=== PATIENT | male | born 1950 | race Caucasian/White ===

== ENCOUNTER 2019-06-26 08:57 | Inpatient (IN) | payer MEDICARE ==
[~2019-06-26] VITALS: Ht 172.7 cm; Wt 93.6 kg
[2019-06-26] MEDS ORDERED: ASPIRIN 81 MG TABLET CHEW PO ONE (09:30)
--- NOTE | 2019-06-26 09:36 | NUR ---
DIE BARBER: PT TO ROOM FROM LOBBY
[2019-06-26] MEDS ORDERED: ASPIRIN 81 MG TABLET CHEW ONE (10:04)
[2019-06-26 10:06] LABS: BASOPHILS # (AUTO) 0.04 x10^3/uL (0-0.1); BASOPHILS % (AUTO) 1 % (0-1); EOSINOPHILS # (AUTO) 0.08 x10^3/uL (0-0.4); EOSINOPHILS % (AUTO) 1 % (1-7); LYMPHOCYTES # (AUTO) 1.38 x10^3/uL (1-3.4); LYMPHOCYTES % (AUTO) 21 % (22-44); MD NO; MEAN CORPUSCULAR HEMOGLOBIN 31.1 pg (27.5-34.5); MEAN CORPUSCULAR HGB CONC 33.9 g/dL (33.2-36.2); MEAN CORPUSCULAR VOLUME 91.9 fL (81-97); MONOCYTES # (AUTO) 0.54 x10^3/uL (0.2-0.8); MONOCYTES % (AUTO) 8 % (2-9); NEUTROPHILS # (AUTO) 4.48 x10^3/uL (1.8-6.8); NEUTROPHILS % (AUTO) 69 % (42-75); PLATELET COUNT 233 x10^3/uL (130-400); RED BLOOD COUNT 5.16 x10^6/uL (4.38-5.82); RED CELL DISTRIBUTION WIDTH 13.4 % (9.4-14.8)
[2019-06-26 10:11] LABS: ALBUMIN 3.7 g/dL (3.4-5.0); ANION GAP 4 mmol/L (5-15); CALCIUM 9.1 mg/dL (8.5-10.1); CHLORIDE 106 mmol/L (98-107); CREATININE 1.07 mg/dL (0.7-1.3)
[2019-06-26 10:21] LABS: TROPONIN I 0.832 ng/mL (0.000-0.045)
[2019-06-26] MEDS ORDERED: NITROGLYCERIN OINT 2%, 1GM TP ONE ×2 (11:00→11:40)
[2019-06-26] MEDS ORDERED: HEPARIN 5,000 UNITS/ML, 1ML IV PRN (11:00)
[2019-06-26] MEDS ORDERED: HEPARIN 25,000 UNITS/250ML PMX 250 ML IV PRN (11:00)
[2019-06-26] MEDS ORDERED: HEPARIN 5,000 UNITS/ML, 1ML IV ONE (11:00)
[2019-06-26] MEDS ORDERED: AMLO5TAB4 PO (11:18)
[2019-06-26] MEDS ORDERED: ASPI-496 PO (11:18)
[2019-06-26] MEDS ORDERED: ONDANSETRON 2MG/ML, 2ML IVPush PRN (11:30)
[2019-06-26] MEDS ORDERED: morphine SULFATE 10 MG/ML, 1ML IVPush PRN (11:30)
[2019-06-26] MEDS ORDERED: HEPARIN 25,000 UNITS/250ML PMX 250 ML ONE (11:39)
[2019-06-26] MEDS ORDERED: HEPARIN 5,000 UNITS/ML, 1ML ONE (11:39)
[2019-06-26 12:23] VITALS: BP 174/97
[2019-06-26] MEDS ORDERED: TRAZ-175 PO (12:40)
[2019-06-26] MEDS ORDERED: VERAPAMIL 2.5 MG/ML, 2ML ONE (14:14)
[2019-06-26] MEDS ORDERED: MIDAZOLAM 1 MG/ML, 2ML ONE ×3 (14:14→15:09)
[2019-06-26] MEDS ORDERED: FENTANYL PF 100 MCG/2ML ONE ×2 (14:14→15:09)
[2019-06-26] MEDS ORDERED: LIDOCAINE-MPF 1%, 5ML ONE (14:14)
[2019-06-26] MEDS: SODIUM CHLORIDE 0.9% 1,000 ML IV SCH ×2 (15:00→21:37)
[2019-06-26] MEDS ORDERED: PRASUGREL 10 MG TABLET ONE (15:26)
[2019-06-26] MEDS ORDERED: BIVALIRUDIN 250 MG ONE (15:29)
[2019-06-26] MEDS ORDERED: BIVALIRUDIN 250 MG in SODIUM CHLORIDE 0.9% 50 ML IV SCH (15:37)
[2019-06-26] MEDS ORDERED: DIPHENHYDRAMINE 50 MG CAPSULE PO ONE (17:00)
[2019-06-26] MEDS: METOPROLOL TARTRATE 25 MG TAB PO SCH (17:29)
[2019-06-26 19:15] VITALS: BP 159/80
[2019-06-26] MEDS ORDERED: ATORVASTATIN 40 MG TABLET PO SCH (21:00)
[2019-06-26] MEDS ORDERED: TEMAZEPAM 15 MG CAPSULE PO PRN (23:00)
[2019-06-27 01:29] VITALS: BP_SYST 164; BP_SYST 169; BP_DIAS 100; BP_DIAS 99
[2019-06-27 04:33] LABS: BASOPHILS # (AUTO) 0.03 x10^3/uL (0-0.1); BASOPHILS % (AUTO) 0 % (0-1); EOSINOPHILS # (AUTO) 0.12 x10^3/uL (0-0.4); EOSINOPHILS % (AUTO) 1 % (1-7); LYMPHOCYTES # (AUTO) 1.09 x10^3/uL (1-3.4); LYMPHOCYTES % (AUTO) 13 % (22-44); MD NO; MEAN CORPUSCULAR HEMOGLOBIN 31.4 pg (27.5-34.5); MEAN CORPUSCULAR HGB CONC 34.1 g/dL (33.2-36.2); MEAN PLATELET VOLUME 8.4 fL (7.4-10.4); MONOCYTES # (AUTO) 0.66 x10^3/uL (0.2-0.8); MONOCYTES % (AUTO) 8 % (2-9); NEUTROPHILS # (AUTO) 6.83 x10^3/uL (1.8-6.8); NEUTROPHILS % (AUTO) 78 % (42-75); PLATELET COUNT 216 x10^3/uL (130-400); RED CELL DISTRIBUTION WIDTH 13.7 % (9.4-14.8)
[2019-06-27 04:45] LABS: ALBUMIN 3.2 g/dL (3.4-5.0); ANION GAP 3 mmol/L (5-15); CALCIUM 8.7 mg/dL (8.5-10.1); CHLORIDE 106 mmol/L (98-107)
[2019-06-27 04:48] LABS: ALANINE AMINOTRANSFERASE 37 U/L (12-78); ALKALINE PHOSPHATASE 76 U/L (45-117); BILIRUBIN,TOTAL 0.7 mg/dL (0.2-1.0); CHOL/HDL RATIO 2.5; CHOLESTEROL, TOTAL 195 mg/dL (140-239); CREATININE 1.04 mg/dL (0.7-1.3); HDL CHOL % 40 % (26-37); HDL CHOLESTEROL (DIRECT) 78 mg/dL (40-60); LDL CHOLESTEROL,CALCULATED 97 mg/dL (54-169); LDL/HDL RATIO 1.2 (0.5-3.0); TOTAL PROTEIN 6.9 g/dL (6.4-8.2); TRIGLYCERIDES 101 mg/dL (50-200); VLDL CHOLESTEROL 20 mg/dL (0-25)
[2019-06-27 05:03] VITALS: BP 188/99
[2019-06-27] MEDS: METOPROLOL TARTRATE 25 MG TAB PO SCH (05:08)
[2019-06-27 06:42] VITALS: BP 175/86
[2019-06-27] MEDS ORDERED: PRASUGREL 10 MG TABLET PO SCH (09:00)
[2019-06-27] MEDS ORDERED: ASPIRIN 81 MG TABLET EC PO SCH (09:00)
[2019-06-27] MEDS ORDERED: METO-93 PO (09:53)
[2019-06-27] MEDS ORDERED: ATOR40TA78 PO (09:53)
[2019-06-27] MEDS ORDERED: PRAS10TA4 PO (09:53)
[2019-06-27] MEDS ORDERED: METOPROLOL SUCCINATE 50 MG TAB.ER.24H PO SCH (21:00)
== END 2019-06-27 12:18 | disposition home or self-care (01) | DRG 246 ==
LOC: ED 10:20 → EDIP 10:37 → 5SO 12:14
PROVIDERS: ADMIT Internal Medicine; ATTEND Family Medicine
PROC: 027034Z Dilation of Coronary Artery, One Artery with Drug-eluting Intraluminal Device, Percutaneous Approach (ICD-10-PCS; principal; 2019-06-26)
PROC: 4A023N7 Measurement of Cardiac Sampling and Pressure, Left Heart, Percutaneous Approach (ICD-10-PCS; 2019-06-26)
PROC: B211YZZ Fluoroscopy of Multiple Coronary Arteries using Other Contrast (ICD-10-PCS; 2019-06-26)
PROC: B215YZZ Fluoroscopy of Left Heart using Other Contrast (ICD-10-PCS; 2019-06-26)
DX: I25.110 Atherosclerotic heart disease of native coronary artery with unstable angina pectoris (principal); I50.33 Acute on chronic diastolic (congestive) heart failure; E66.9 Obesity, unspecified; I11.9 Hypertensive heart disease without heart failure; E78.5 Hyperlipidemia, unspecified; Z68.31 Body mass index [BMI] 31.0-31.9, adult; Z87.891 Personal history of nicotine dependence; Z86.73 Personal history of transient ischemic attack (TIA), and cerebral infarction without residual deficits; Z79.82 Long term (current) use of aspirin; Z79.899 Other long term (current) drug therapy
CPT/HCPCS: 36415; 71045; 80048; 80053; 80061; 82040; 84443; 84484; 85025; 85520; 93005; 93306; 93458; 99156; 99157; 99285; C1894; C9600; G0378; J0583; J1644; J2250; J3010; C1725; C1769; C1874; C1887; J7030; Q9967